=== PATIENT | female | born 1975 | race Caucasian/White ===

== ENCOUNTER 2022-02-12 08:04 | Inpatient (IN) ==
[2022-02-12] MEDS ORDERED: Clindamycin 900 MG/50 ML 900 MG/50 ML IV.SOLN IVPB ONE (08:32)
[2022-02-12] MEDS ORDERED: Scopolamine Patch 1.5 MG PATCH.TD72 TD ONE (08:34)
[2022-02-12] MEDS ORDERED: Ringers Solution, Lactated 1,000 ML IVC SCH ×2 (08:45→13:18)
[2022-02-12] MEDS ORDERED: *HR* Propofol 200 MG/20 ML VIAL IVP ONE (09:11)
[2022-02-12] MEDS ORDERED: *HR* Midazolam HCl 2 MG/2 ML VIAL ONE (09:11)
[2022-02-12] MEDS ORDERED: *HR* FentaNYL (PF) 100 MCG/2 ML VIAL ONE (09:11)
[2022-02-12] MEDS ORDERED: *HR* Rocuronium Bromide 50 MG/5 ML VIAL ONE (09:13)
[2022-02-12] MEDS ORDERED: Ondansetron 4 MG/2 ML VIAL ONE (09:13)
[2022-02-12] MEDS ORDERED: Lidocaine -MPF 2% 5 ML VIAL ONE (09:13)
[2022-02-12] MEDS ORDERED: Lidocaine HCL 4 ML Topical Solution (Laryng-O-Jet Kit Sterile Pak) TP ONE (09:43)
[2022-02-12] MEDS ORDERED: Ketamine HCL *QUVA* 50mg (1mL) SYRINGE ONE (10:26)
[2022-02-12] MEDS ORDERED: EPHEDrine sulfate 50 MG/10 ML VIAL IVP ONE (10:30)
[2022-02-12] MEDS ORDERED: Sugammadex Sodium 200 MG/2 ML VIAL IV ONE (11:05)
[2022-02-12] MEDS ORDERED: *HR* HYDROMORPHONE 2 MG/ML VIAL ONE (11:27)
[2022-02-12] MEDS ORDERED: Naloxone 0.4 MG/ML INJ IVP PRN (13:18)
[2022-02-12] MEDS ORDERED: Ondansetron 4 MG/2 ML VIAL IVP PRN (13:18)
[2022-02-12] MEDS ORDERED: Sennosides 8.6 MG TABLET PO PRN (13:18)
[2022-02-12] MEDS: Ibuprofen 600 MG TABLET PO SCH ×2 (13:33→20:11)
[2022-02-12] MEDS: Acetaminophen 325 MG TABLET PO SCH ×2 (13:33→20:11)
[2022-02-12] MEDS: *HR* OxyCODONE Immed Rel 5 MG TABLET PO PRN ×2 (15:17→20:11)
[2022-02-12] MEDS: Clindamycin 900 MG/50 ML 900 MG/50 ML IV.SOLN IVPB SCH (16:19)
[2022-02-12] MEDS ORDERED: *HR* Succinylcholine 200 MG/10 ML VIAL IVP ONE (17:18)
[2022-02-13] MEDS: Clindamycin 900 MG/50 ML 900 MG/50 ML IV.SOLN IVPB SCH ×3 (00:17→17:53)
[2022-02-13] MEDS: *HR* OxyCODONE Immed Rel 5 MG TABLET PO PRN ×2 (00:21→05:21)
[2022-02-13] MEDS: Ibuprofen 600 MG TABLET PO SCH ×4 (04:52→15:10)
[2022-02-13 06:21] LABS: Basophils % 0.1 %; Hematocrit 32.5 % (35.3-44.9); Hemoglobin 10.6 g/dL (11.5-15.4); Immature Granulocytes % 0.1 % (0-4); Lymphocytes # 1.4 K/mcL (0.6-4.6); Lymphocytes % 16.5 %; Mean Corpuscular HGB Conc 32.6 g/dL (31.6-35.5); Mean Corpuscular Hemoglobin 28.9 pg (28.0-33.3); Mean Corpuscular Volume 88.6 fL (83.0-100.0); Mean Platelet Volume 9.3 fL (9.4-12.4); Monocytes # 0.7 K/mcL (0.0-1.3); Monocytes % 8.1 %; Neutrophils # 6.4 K/mcL (1.6-8.9); Platelet Count 260 K/mcL (140-400); Red Blood Count 3.67 M/mcL (3.82-4.97); Red Cell Distribution Width 12.4 % (11.5-14.5); Segmented Neutrophils % 75.2 %; White Blood Count 8.5 K/mcL (4.3-11.1)
[2022-02-13] MEDS: Acetaminophen 325 MG TABLET PO SCH ×3 (08:17→17:53)
[2022-02-13 15:15] VITALS: O2SAT 100
[2022-02-13 21:16] VITALS: BP 133/75; PULSE 70; TEMP 97.6
== END 2022-02-13 21:25 | disposition home or self-care (01) | DRG 743 ==
LOC: SAMDAY 08:04 → 1NENUPED 12:40
PROVIDERS: ADMIT Obstetrics & Gynecology; ATTEND Obstetrics & Gynecology